=== PATIENT | female | born 2000 | race Caucasian/White ===

== ENCOUNTER 2021-12-26 12:05 | Outpatient (CLI) | payer OTHER, SELFPAY ==
[2021-12-26 13:44] LABS: Hematocrit 37.7 % (37-47); Hemoglobin 12.4 g/dL (12.0-15.0); Mean Corp Hgb Conc 32.9 g/dL (32-36); Mean Corpuscular Volume 91.3 fL (81-99); Mean Platelet Vol. 9.2 fl (6.2-12.0); Platelet Count 355 K/mm3 (150-450); RBC Distribution Width CV 13.2 % (11.6-14.6); RBC Distribution Width SD 44.1 fl (35.1-43.9); Red Blood Count 4.13 M/mm3 (4.2-5.4); White Blood Count 8.2 K/mm3 (4.4-11.0)
[2021-12-26 14:01] LABS: Progesterone Level 0.47 ng/mL (See Comment); T3 Total - Triiodothyronine 0.96 ng/mL (0.6-1.81); Vitamin D,25 Hydroxy 25.9 ng/mL
[2021-12-26 16:27] LABS: ALB/GLOB Ratio 1.3 RATIO (0.9-2.4); AST(SGOT) 11 U/L (15-37); Alanine Aminotransfer ALT/SGPT 19 U/L (13-56); Albumin, Serum 4.4 g/dL (3.2-5.0); Alkaline Phosphatase 72 U/L (45-117); Anion Gap 4 (5-15); BUN 11 mg/dL (7-18); BUN/Creat Ratio 14.1 RATIO (10-20); Calcium,Total 9.2 mg/dL (8.5-10.1); Chloride 105 mmol/L (98-107); Cholesterol 161 mg/dL (200); Creatinine, Serum 0.78 mg/dL (0.55-1.02); EST Glomerular Filtration Rate 100 mL/min (>60); Est Glom Filt Rate - Afr Amer 121 mL/min (>60); Estradiol 26.5 pg/mL; Follicle Stimulating Hormone 4.9 mIU/mL; Globulin 3.4 g/dL (2.2-4.2); Glucose 86 mg/dL (74-106); High Density Lipoprotein 63 mg/dL; Potassium 3.8 mmol/L (3.5-5.1); Prolactin 6.7 ng/mL; Protein, Total 7.8 g/dL (6.4-8.2); Sodium Level 137 mmol/L (136-145); Thyroid Stim Hormone (TSH) 0.91 uIU/mL (0.358-3.74); Triglycerides 67 mg/dL; Very Low Density Lipoprotein 13 mg/dL (5-40)
[2021-12-28 21:07] LABS: Chlamydia By Nucleic Acid AMP Negative (Negative); Gonococcus By Nucleic Acid AMP Negative (Negative)
[2021-12-28 21:29] LABS: Sex Hormone-binding Globulin 33.5 nmol/L (24.6-122.0)
[2022-01-05 09:23] LABS: Anti-Mullerian Hormone,Serum 7.84 ng/mL (.)
[2022-01-10 18:44] LABS: 17-Hydroxyprogesterone 41 ng/dL (.)
== END 2021-12-26 23:59 | disposition home or self-care (01) ==
LOC: WOBLAB 12:10
PROVIDERS: Visit Provider Obstetrics & Gynecology
DX: Z11.3 Encounter for screening for infections with a predominantly sexual mode of transmission (principal); N92.1 Excessive and frequent menstruation with irregular cycle
CPT/HCPCS: 36415; 80053; 80061; 82306; 82533; 82627; 82670; 83001; 83498; 83516; 84144; 84146; 84270; 84403; 84439; 84443; 84480; 85027; 87491; 87591; 82626